=== PATIENT | male | born 1970 | race Hispanic/Latino ===

== ENCOUNTER 2021-01-04 11:36 | Inpatient (IN) | payer BC ==
[~2021-01-04] VITALS: Ht 157.5 cm; Wt 96.8 kg
[2021-01-04] MEDS ORDERED: KETOROLAC 30MG VIAL (30MG/ML) IVP ONE (13:30)
[2021-01-04] MEDS ORDERED: MORPHINE 4 MG SYG IVP ONE (13:30)
[2021-01-04] MEDS ORDERED: LACTATED RINGERS 1000ML 1,000 ML IV ONE (13:30)
[2021-01-04] MEDS ORDERED: ONDANSETRON 4MG INJ IVP ONE (13:30)
[2021-01-04] MEDS ORDERED: FAMOTIDINE 20MG TAB PO ONE (13:30)
[2021-01-04 13:50] LABS: BASOPHILS % (AUTO) 0.1 % (0.0-5.0); HEMATOCRIT 43.9 % (42-54); LYMPHOCYTES % (AUTO) 7.2 % (21.0-51.0); MEAN CORPUSCULAR HEMOGLOBIN 27.8 pg (27.0-33.0); MEAN CORPUSCULAR HGB CONC 33.3 g/dL (32.0-36.0); MEAN CORPUSCULAR VOLUME 83.6 fL (79-99); MONOCYTES % (AUTO) 9.3 % (3.0-13.0); NEUTROPHILS % (AUTO) 82.8 % (40.0-77.0); PLATELET COUNT (AUTO) 222 K/uL (130-400); RED BLOOD CELL COUNT(AUTO) 5.25 MIL/uL (4.50-6.20); RED CELL DISTRIBUTION WIDTH 13.8 % (11.0-15.5); WHITE BLOOD COUNT (AUTO) 14.4 K/uL (4.8-10.8)
[2021-01-04 14:03] LABS: CARBON DIOXIDE 23 mmol/L (21-32); CHLORIDE 99 mmol/L (101-111); CREATININE 0.9 mg/dL (0.5-1.5); GLOMERULAR FILTR. RATE CALC 95 mL/min (>60); GLUCOSE,RANDOM 120 mg/dL (70-105); POTASSIUM 3.1 mmol/L (3.5-5.1); SODIUM SERUM 136 mmol/L (136-145); UREA NITROGEN, BLOOD 11 mg/dL (7-18)
[2021-01-04 14:07] LABS: ALANINE AMINOTRANSFERASE 42 U/L (12-78); ALBUMIN 3.7 g/dL (3.5-5.0); AMYLASE 45 U/L (25-115); ASPARTATE AMINOTRANSFERASE 26 U/L (10-37); BILIRUBIN,TOTAL 0.7 mg/dL (0.2-1.0); TOTAL PROTEIN, SERUM 8.3 g/dL (6.0-8.3)
[2021-01-04 14:08] LABS: LIPASE < 50 U/L (114-286)
[2021-01-04] MEDS ORDERED: ZOSYN 3.375GM +NS 50ML IV ONE (15:30)
[2021-01-04 16:11] LABS: APPEARANCE,URINE Clear (CLEAR); BILIRUBIN,URINE Negative (NEGATIVE); COLOR,URINE Yellow (YELLOW); GLUCOSE, URINE (UA) Negative (NEGATIVE); KETONES,URINE Negative (NEGATIVE); LEUKOCYTE ESTERASE ,URINE Small (NEGATIVE); NITRATE,URINE Negative (NEGATIVE); OCCULT BLOOD,URINE Negative (NEGATIVE); PROTEIN,URINE Negative (NEGATIVE)
[2021-01-04 16:30] LABS: BACTERIA,URINE Few /HPF (None Seen); MUCUS,URINE Few LPF (None Seen); SQUAMOUS EPITHELIAL CELL,UR Moderate /HPF (0-2)
[2021-01-04] MEDS ORDERED: KCL 20 MEQ ERTAB PO ONE (17:30)
[2021-01-04] MEDS ORDERED: ONDANSETRON 4MG INJ IVP PRN (17:30)
[2021-01-04] MEDS ORDERED: ZOSYN 3.375GM+NS 50ML 3.38 GM in 0.9%NACL 50ML 50 ML IV SCH (17:30)
[2021-01-04] MEDS: LACTATED RINGERS 1000ML 1,000 ML IV SCH (18:04)
[2021-01-04 18:06] LABS: CRP QUANTITATIVE 121.5 mg/L (0.00-9.0); MAGNESIUM 1.7 mg/dL (1.80-2.40)
[2021-01-04] MEDS ORDERED: 0.9%NACL 50ML 50 ML IV ONE (19:02)
[2021-01-04] MEDS: ZOSYN 3.375GM +NS 50ML IV SCH (19:10)
[2021-01-04] MEDS: KETOROLAC 15MG/ML VIAL (15MG/ML) IV PRN (21:06)
[2021-01-05] MEDS: ZOSYN 3.375GM +NS 50ML IV SCH (02:00)
[2021-01-05] MEDS ORDERED: MAGNESIUM 2GM PREMIX 50ML 50 ML IV SCH (04:00)
[2021-01-05] MEDS ORDERED: 0.9%NACL 50ML 50 ML IV ONE (04:12)
[2021-01-05] MEDS: MORPHINE 2 MG SYG IVP PRN ×2 (04:16→18:47)
[2021-01-05 05:03] LABS: BASOPHILS % (AUTO) 0.1 % (0.0-5.0); HEMATOCRIT 41.5 % (42-54); LYMPHOCYTES % (AUTO) 9.2 % (21.0-51.0); MEAN CORPUSCULAR HEMOGLOBIN 27.5 pg (27.0-33.0); MEAN CORPUSCULAR VOLUME 83.2 fL (79-99); MONOCYTES % (AUTO) 11.3 % (3.0-13.0); NEUTROPHILS % (AUTO) 78.9 % (40.0-77.0); PLATELET COUNT (AUTO) 212 K/uL (130-400); RED BLOOD CELL COUNT(AUTO) 4.99 MIL/uL (4.50-6.20); RED CELL DISTRIBUTION WIDTH 13.7 % (11.0-15.5)
[2021-01-05 05:20] LABS: ALBUMIN 3.1 g/dL (3.5-5.0); BILIRUBIN,TOTAL 0.7 mg/dL (0.2-1.0); CREATININE 0.9 mg/dL (0.5-1.5); MAGNESIUM 1.7 mg/dL (1.80-2.40); POTASSIUM 3.3 mmol/L (3.5-5.1); TOTAL PROTEIN, SERUM 7.3 g/dL (6.0-8.3)
[2021-01-05] MEDS ORDERED: MAGNESIUM 2GM PREMIX 50ML 50 ML IV ONE ×2 (05:39→05:51)
[2021-01-05] MEDS: LACTATED RINGERS 1000ML 1,000 ML IV SCH ×2 (06:50→19:37)
[2021-01-05 09:24] VITALS: BP 137/78
[2021-01-05] MEDS ORDERED: POTASSIUM CHLORIDE 10% ELIXIR 20 MEQ/15 ML UDCUP PO ONE (09:30)
[2021-01-05] MEDS: KETOROLAC 15MG/ML VIAL (15MG/ML) IV PRN ×2 (11:13→18:39)
[2021-01-05 12:00] VITALS: BP 124/61
[2021-01-05] MEDS ORDERED: ZOSYN 3.375GM +NS 50ML IV SCH (13:00)
[2021-01-05 14:14] LABS: AMPHET/METH SCREEN,URINE NEGATIVE (NEGATIVE); BARBITURATE SCREEN, URINE NEGATIVE (NEGATIVE); BENZODIAZEPINES SCREEN,URINE NEGATIVE (NEGATIVE); CANNABINOID SCREEN,URINE POSITIVE (NEGATIVE); COCAINE SCREEN,URINE NEGATIVE (NEGATIVE); OPIATE SCREEN,URINE POSITIVE (NEGATIVE); PHENCYCLIDINE SCREEN,URINE NEGATIVE (NEGATIVE)
[2021-01-05 16:00] VITALS: BP 110/42
[2021-01-05] MEDS ORDERED: POTASSIUM CHLORIDE 10% ELIXIR 20 MEQ/15 ML UDCUP ONE (17:35)
[2021-01-05] MEDS: ZOSYN 3.375GM+NS 50ML 50 ML IV SCH (18:23)
[2021-01-05 20:00] VITALS: BP 119/70
[2021-01-06] VITALS (27 sets, daily range): BP systolic 115–159; BP diastolic 59–95
[2021-01-06] MEDS: KETOROLAC 15MG/ML VIAL (15MG/ML) IV PRN ×2 (02:23→12:09)
[2021-01-06] MEDS: ZOSYN 3.375GM+NS 50ML 50 ML IV SCH ×3 (03:55→20:18)
[2021-01-06 06:37] LABS: HEMATOCRIT 42.7 % (42-54); MEAN CORPUSCULAR HEMOGLOBIN 27.8 pg (27.0-33.0); MEAN CORPUSCULAR VOLUME 84.1 fL (79-99); RED BLOOD CELL COUNT(AUTO) 5.08 MIL/uL (4.50-6.20); RED CELL DISTRIBUTION WIDTH 13.8 % (11.0-15.5); WHITE BLOOD COUNT (AUTO) 13.4 K/uL (4.8-10.8)
[2021-01-06 06:59] LABS: ALBUMIN 2.8 g/dL (3.5-5.0); BILIRUBIN,TOTAL 0.8 mg/dL (0.2-1.0); CREATININE 0.8 mg/dL (0.5-1.5); POTASSIUM 3.8 mmol/L (3.5-5.1); TOTAL PROTEIN, SERUM 7.1 g/dL (6.0-8.3)
[2021-01-06] MEDS: LACTATED RINGERS 1000ML 1,000 ML IV SCH ×2 (12:08→17:30)
[2021-01-06] MEDS: ACETAMINOPHEN 325 MG TAB PO PRN (12:28)
[2021-01-06] MEDS ORDERED: SUCCINYLCHOLINE CHLORIDE 20 MG/ML 10 ML VIAL ONE (15:16)
[2021-01-06] MEDS ORDERED: MIDAZOLAM HCL 1 MG/ML 2ML VIAL ONE (15:16)
[2021-01-06] MEDS ORDERED: LIDOCAINE HCL MPF 1% 5ML VIAL ONE (15:16)
[2021-01-06] MEDS ORDERED: FENTANYL CITRATE PF 50 MCG/1 ML 2ML VIAL ONE (15:17)
[2021-01-06] MEDS ORDERED: ROCURONIUM 10MG/1ML SYR 10 MG/ML ML ONE (15:17)
[2021-01-06] MEDS ORDERED: PROPOFOL 10 MG/ML 20ML VIAL IV ONE ×2 (15:17→16:31)
[2021-01-06] MEDS ORDERED: BUPIVACAINE/PF 0.5% 30ML VIAL ONE (15:39)
[2021-01-06] MEDS ORDERED: MEPERIDINE-PF 25 MG/ML SYG ONE ×2 (17:27→17:37)
[2021-01-06] MEDS ORDERED: ONDANSETRON 4MG INJ IVP PRN (17:30)
[2021-01-06] MEDS: MORPHINE 4 MG SYG IV PRN ×2 (20:18→23:51)
[2021-01-07] MEDS: TRAMADOL HCL 50 MG TABLET PO PRN ×3 (00:23→22:10)
[2021-01-07 03:47] VITALS: BP 147/86
[2021-01-07 04:23] LABS: BASOPHILS % (AUTO) 0.1 % (0.0-5.0); EOSINOPHILS % (AUTO) 0.1 % (0.0-8.0); HEMATOCRIT 40.6 % (42-54); LYMPHOCYTES % (AUTO) 9.4 % (21.0-51.0); MEAN CORPUSCULAR HEMOGLOBIN 27.4 pg (27.0-33.0); MEAN CORPUSCULAR HGB CONC 32.8 g/dL (32.0-36.0); MEAN CORPUSCULAR VOLUME 83.5 fL (79-99); MONOCYTES % (AUTO) 8.8 % (3.0-13.0); PLATELET COUNT (AUTO) 212 K/uL (130-400); RED BLOOD CELL COUNT(AUTO) 4.86 MIL/uL (4.50-6.20); RED CELL DISTRIBUTION WIDTH 13.9 % (11.0-15.5); WHITE BLOOD COUNT (AUTO) 15.5 K/uL (4.8-10.8)
[2021-01-07] MEDS: ZOSYN 3.375GM+NS 50ML 50 ML IV SCH ×3 (05:04→19:57)
[2021-01-07] MEDS: MORPHINE 4 MG SYG IV PRN ×2 (05:04→11:04)
[2021-01-07] MEDS: LACTATED RINGERS 1000ML 1,000 ML IV SCH (06:50)
[2021-01-07 08:50] VITALS: BP 137/83
[2021-01-07 09:18] LABS: ALBUMIN 2.5 g/dL (3.5-5.0); BILIRUBIN,TOTAL 1.9 mg/dL (0.2-1.0); POTASSIUM 3.2 mmol/L (3.5-5.1); TOTAL PROTEIN, SERUM 7.1 g/dL (6.0-8.3)
[2021-01-07] MEDS ORDERED: KCL 20 MEQ ERTAB PO SCH (10:00)
[2021-01-07 11:03] VITALS: BP 128/85
[2021-01-07] MEDS ORDERED: FUROSEMIDE 20MG VIAL IV ONE (15:30)
[2021-01-07] MEDS ORDERED: ALBUTEROL 0.083% 2.5 MG/3 ML INH IH ONE (15:30)
[2021-01-07 15:57] LABS: BASOPHILS % (AUTO) 0.2 % (0.0-5.0); EOSINOPHILS % (AUTO) 0.2 % (0.0-8.0); HEMATOCRIT 42.6 % (42-54); LYMPHOCYTES % (AUTO) 9.1 % (21.0-51.0); MEAN CORPUSCULAR HEMOGLOBIN 27.9 pg (27.0-33.0); MEAN CORPUSCULAR HGB CONC 32.9 g/dL (32.0-36.0); MONOCYTES % (AUTO) 9.4 % (3.0-13.0); NEUTROPHILS % (AUTO) 80.6 % (40.0-77.0); PLATELET COUNT (AUTO) 231 K/uL (130-400); RED BLOOD CELL COUNT(AUTO) 5.01 MIL/uL (4.50-6.20); WHITE BLOOD COUNT (AUTO) 13.2 K/uL (4.8-10.8)
[2021-01-07] MEDS ORDERED: LORAZEPAM 2 MG/ML 1 ML VIAL ONE (16:09)
[2021-01-07 16:41] LABS: CREATININE 1.1 mg/dL (0.5-1.5); POTASSIUM 3.3 mmol/L (3.5-5.1)
[2021-01-07 16:48] LABS: ALBUMIN 2.6 g/dL (3.5-5.0); BILIRUBIN,TOTAL 2.8 mg/dL (0.2-1.0); TOTAL PROTEIN, SERUM 7.6 g/dL (6.0-8.3)
[2021-01-07 17:02] VITALS: BP 166/70
[2021-01-07] MEDS ORDERED: POTASSIUM CHLORIDE 10% ELIXIR 20 MEQ/15 ML UDCUP PO ONE (17:42)
[2021-01-07] MEDS: IPRATROPIUM/ALBUTEROL SULFATE 3 ML SOLUTION IH SCH ×2 (19:01→23:28)
[2021-01-07 20:00] VITALS: BP 151/91
[2021-01-07 23:45] VITALS: BP 149/94
[2021-01-08] MEDS: ZOSYN 3.375GM+NS 50ML 50 ML IV SCH ×2 (03:32→11:08)
[2021-01-08] MEDS: TRAMADOL HCL 50 MG TABLET PO PRN ×3 (03:32→13:14)
[2021-01-08 04:00] VITALS: BP 141/90
[2021-01-08 04:07] LABS: BASOPHILS % (AUTO) 0.1 % (0.0-5.0); EOSINOPHILS % (AUTO) 0.4 % (0.0-8.0); HEMATOCRIT 38.2 % (42-54); LYMPHOCYTES % (AUTO) 8.8 % (21.0-51.0); MEAN CORPUSCULAR HEMOGLOBIN 27.6 pg (27.0-33.0); MEAN CORPUSCULAR HGB CONC 32.5 g/dL (32.0-36.0); MEAN CORPUSCULAR VOLUME 84.9 fL (79-99); MONOCYTES % (AUTO) 11.2 % (3.0-13.0); NEUTROPHILS % (AUTO) 78.6 % (40.0-77.0); PLATELET COUNT (AUTO) 215 K/uL (130-400); WHITE BLOOD COUNT (AUTO) 13.7 K/uL (4.8-10.8)
[2021-01-08 04:24] LABS: ALBUMIN 2.2 g/dL (3.5-5.0); BILIRUBIN,TOTAL 2.4 mg/dL (0.2-1.0); CREATININE 0.9 mg/dL (0.5-1.5); POTASSIUM 3.4 mmol/L (3.5-5.1); TOTAL PROTEIN, SERUM 6.6 g/dL (6.0-8.3)
[2021-01-08] MEDS: IPRATROPIUM/ALBUTEROL SULFATE 3 ML SOLUTION IH SCH ×3 (06:55→19:01)
[2021-01-08 08:32] VITALS: BP 123/84
[2021-01-08] MEDS: MORPHINE 4 MG SYG IV PRN (11:08)
[2021-01-08 11:39] VITALS: BP 137/83
[2021-01-08 16:35] VITALS: BP 142/88
[2021-01-08] MEDS ORDERED: KCL 20 MEQ ERTAB PO ONE (18:00)
[2021-01-08] MEDS ORDERED: HYDROMORPHONE 1 MG INJ IVP ONE (18:30)
[2021-01-08] MEDS ORDERED: KETOROLAC 30MG VIAL (30MG/ML) IM PRN (18:30)
[2021-01-08] MEDS: MEROPENEM 1 GM VIAL IVP SCH (18:37)
[2021-01-08] MEDS: BUDESONIDE 0.5 MG/2 ML INH IH SCH (19:15)
[2021-01-08 20:18] VITALS: BP 146/88
[2021-01-08 23:40] VITALS: BP 130/82
[2021-01-08] MEDS: HYDROMORPHONE 0.5 MG SYG (0.5MG/0.5ML) IVP PRN (23:44)
[2021-01-09] MEDS ORDERED: KCL 20 MEQ ERTAB PO SCH (00:01)
[2021-01-09] MEDS: IPRATROPIUM/ALBUTEROL SULFATE 3 ML SOLUTION IH SCH ×5 (00:18→23:26)
[2021-01-09] MEDS: MEROPENEM 1 GM VIAL IVP SCH ×3 (02:47→17:39)
[2021-01-09] MEDS: HYDROMORPHONE 0.5 MG SYG (0.5MG/0.5ML) IVP PRN ×2 (04:22→16:14)
[2021-01-09 04:34] VITALS: BP 140/83
[2021-01-09 05:02] LABS: BASOPHILS % (AUTO) 0.1 % (0.0-5.0); EOSINOPHILS % (AUTO) 1.5 % (0.0-8.0); HEMATOCRIT 38.8 % (42-54); MEAN CORPUSCULAR HEMOGLOBIN 27.5 pg (27.0-33.0); MEAN CORPUSCULAR HGB CONC 32.2 g/dL (32.0-36.0); MEAN CORPUSCULAR VOLUME 85.3 fL (79-99); NEUTROPHILS % (AUTO) 81.3 % (40.0-77.0); PLATELET COUNT (AUTO) 276 K/uL (130-400); RED BLOOD CELL COUNT(AUTO) 4.55 MIL/uL (4.50-6.20); RED CELL DISTRIBUTION WIDTH 13.8 % (11.0-15.5); WHITE BLOOD COUNT (AUTO) 15.8 K/uL (4.8-10.8)
[2021-01-09 05:17] LABS: ALBUMIN 2.3 g/dL (3.5-5.0); BILIRUBIN,TOTAL 2.6 mg/dL (0.2-1.0); CREATININE 0.9 mg/dL (0.5-1.5); MAGNESIUM 2.2 mg/dL (1.80-2.40); PHOSPHORUS 3.3 mg/dL (2.5-4.9); POTASSIUM 4.4 mmol/L (3.5-5.1); TOTAL PROTEIN, SERUM 7.3 g/dL (6.0-8.3)
[2021-01-09 05:24] LABS: B-TYPE NATRIURETIC PEPTIDE 13 pg/mL (0-100)
[2021-01-09 05:29] LABS: CRP QUANTITATIVE 329.7 mg/L (0.00-9.0)
[2021-01-09] MEDS: BUDESONIDE 0.5 MG/2 ML INH IH SCH ×2 (06:00→18:12)
[2021-01-09 06:35] LABS: ERYTHROCYTE SEDIMENTATION RATE 79 MM/HR (0-15)
[2021-01-09 08:00] VITALS: BP 134/72
[2021-01-09] MEDS: ACETAMINOPHEN 325 MG TAB PO PRN (08:33)
[2021-01-09 12:00] VITALS: BP 126/78
[2021-01-09 16:00] VITALS: BP 135/79
[2021-01-09 19:30] VITALS: BP 123/66
[2021-01-09 23:30] VITALS: BP 127/77
[2021-01-10] VITALS (21 sets, daily range): BP systolic 119–159; BP diastolic 62–91
[2021-01-10] MEDS: MEROPENEM 1 GM VIAL IVP SCH ×3 (02:10→17:42)
[2021-01-10 05:12] LABS: HEMATOCRIT 37.6 % (42-54); MEAN CORPUSCULAR HEMOGLOBIN 27.5 pg (27.0-33.0); MEAN CORPUSCULAR HGB CONC 32.7 g/dL (32.0-36.0); MEAN CORPUSCULAR VOLUME 84.1 fL (79-99); RED BLOOD CELL COUNT(AUTO) 4.47 MIL/uL (4.50-6.20); RED CELL DISTRIBUTION WIDTH 13.8 % (11.0-15.5); WHITE BLOOD COUNT (AUTO) 14.4 K/uL (4.8-10.8)
[2021-01-10 05:32] LABS: ALBUMIN 2.2 g/dL (3.5-5.0); BILIRUBIN,TOTAL 1.5 mg/dL (0.2-1.0); CREATININE 0.8 mg/dL (0.5-1.5); POTASSIUM 3.6 mmol/L (3.5-5.1); TOTAL PROTEIN, SERUM 7.1 g/dL (6.0-8.3)
[2021-01-10 05:53] LABS: CRP QUANTITATIVE 211.2 mg/L (0.00-9.0)
[2021-01-10] MEDS: IPRATROPIUM/ALBUTEROL SULFATE 3 ML SOLUTION IH SCH ×4 (06:37→23:24)
[2021-01-10] MEDS: BUDESONIDE 0.5 MG/2 ML INH IH SCH ×2 (06:37→18:41)
[2021-01-10] MEDS: HYDROMORPHONE 0.5 MG SYG (0.5MG/0.5ML) IVP PRN ×2 (09:24→23:09)
[2021-01-10] MEDS ORDERED: IOHEXOL-350 50ML VIAL IV ONE (13:11)
[2021-01-10] MEDS ORDERED: SUCCINYLCHOLINE CHLORIDE 20 MG/ML 10 ML VIAL ONE (13:43)
[2021-01-10] MEDS ORDERED: PROPOFOL 10 MG/ML 20ML VIAL IV ONE (13:43)
[2021-01-10] MEDS: INDOMETHACIN 50 MG SUPP.RECT RC SCH (14:12)
[2021-01-11] VITALS (7 sets, daily range): BP systolic 127–146; BP diastolic 68–90
[2021-01-11] MEDS: MEROPENEM 1 GM VIAL IVP SCH ×3 (01:05→18:45)
[2021-01-11] MEDS: INDOMETHACIN 50 MG SUPP.RECT RC SCH (01:14)
[2021-01-11] MEDS: HYDROMORPHONE 0.5 MG SYG (0.5MG/0.5ML) IVP PRN (03:40)
[2021-01-11 05:10] LABS: BASOPHILS % (AUTO) 0.3 % (0.0-5.0); EOSINOPHILS % (AUTO) 3.3 % (0.0-8.0); HEMATOCRIT 37.2 % (42-54); LYMPHOCYTES % (AUTO) 15.9 % (21.0-51.0); MEAN CORPUSCULAR HEMOGLOBIN 26.8 pg (27.0-33.0); MEAN CORPUSCULAR HGB CONC 31.7 g/dL (32.0-36.0); MEAN CORPUSCULAR VOLUME 84.5 fL (79-99); MONOCYTES % (AUTO) 9.7 % (3.0-13.0); NEUTROPHILS % (AUTO) 68.3 % (40.0-77.0); PLATELET COUNT (AUTO) 365 K/uL (130-400); RED CELL DISTRIBUTION WIDTH 13.8 % (11.0-15.5); WHITE BLOOD COUNT (AUTO) 9.3 K/uL (4.8-10.8)
[2021-01-11 05:26] LABS: ALBUMIN 2.2 g/dL (3.5-5.0); BILIRUBIN,TOTAL 1.3 mg/dL (0.2-1.0); CREATININE 0.7 mg/dL (0.5-1.5); CRP QUANTITATIVE 141.5 mg/L (0.00-9.0); POTASSIUM 3.8 mmol/L (3.5-5.1); TOTAL PROTEIN, SERUM 7.1 g/dL (6.0-8.3)
[2021-01-11 06:22] LABS: ERYTHROCYTE SEDIMENTATION RATE 68 MM/HR (0-15)
[2021-01-11] MEDS: BUDESONIDE 0.5 MG/2 ML INH IH SCH ×2 (07:06→18:16)
[2021-01-11] MEDS: IPRATROPIUM/ALBUTEROL SULFATE 3 ML SOLUTION IH SCH ×4 (07:06→23:51)
[2021-01-12 03:17] VITALS: BP 131/97
[2021-01-12] MEDS: MEROPENEM 1 GM VIAL IVP SCH (03:23)
[2021-01-12] MEDS: IPRATROPIUM/ALBUTEROL SULFATE 3 ML SOLUTION IH SCH ×2 (06:56→12:00)
[2021-01-12] MEDS: BUDESONIDE 0.5 MG/2 ML INH IH SCH (06:57)
[2021-01-12] MEDS ORDERED: METR500T PO (07:20)
[2021-01-12] MEDS ORDERED: LEVO500T90 PO (07:20)
[2021-01-12 07:50] VITALS: BP 154/91
== END 2021-01-12 12:00 | disposition home or self-care (01) | DRG 853 ==
LOC: EDH 11:36 → EDHIP 17:07 → 3AH 01-05 09:20
PROVIDERS: ADMIT Internal Medicine; ATTEND Internal Medicine
PROC: 0FT44ZZ Resection of Gallbladder, Percutaneous Endoscopic Approach (ICD-10-PCS; principal; 2021-01-06 15:30)
PROC: 0FC98ZZ Extirpation of Matter from Common Bile Duct, Via Natural or Artificial Opening Endoscopic (ICD-10-PCS; 2021-01-10)
DX: A41.9 Sepsis, unspecified organism (principal); J96.01 Acute respiratory failure with hypoxia; K56.7 Ileus, unspecified; K57.32 Diverticulitis of large intestine without perforation or abscess without bleeding; J98.11 Atelectasis; K80.62 Calculus of gallbladder and bile duct with acute cholecystitis without obstruction; Z20.822 Contact with and (suspected) exposure to COVID-19; F17.210 Nicotine dependence, cigarettes, uncomplicated; K52.89 Other specified noninfective gastroenteritis and colitis; E83.42 Hypomagnesemia; E87.6 Hypokalemia; K76.0 Fatty (change of) liver, not elsewhere classified; E66.9 Obesity, unspecified; Z68.39 Body mass index [BMI] 39.0-39.9, adult; F12.10 Cannabis abuse, uncomplicated; F19.10 Other psychoactive substance abuse, uncomplicated; K75.89 Other specified inflammatory liver diseases; R74.8 Abnormal levels of other serum enzymes; K66.0 Peritoneal adhesions (postprocedural) (postinfection); R93.2 Abnormal findings on diagnostic imaging of liver and biliary tract
CPT/HCPCS: 36415; 43262; 43264; 71045; 74176; 74181; 74328; 74330; 76705; 78226; 80053; 80061; 80305; 81001; 82150; 82948; 83605; 83690; 83735; 83880; 84100; 84145; 84484; 85025; 85027; 85378; 85651; 86140; 87040; 87071; 87205; 87635; 93005; 93970; 94640; A9537; C1769; C1773; G0378; J0330; J1170; J1885; J1940; J2060; J2175; J2185; J2250; J2270; J2405; J2543; J2704; J3010; J3475; J3490; J7030; J7120; Q9967